=== PATIENT | male | born 1985 | race Caucasian/White ===

== ENCOUNTER 2019-01-09 19:45 | Emergency (ER) | payer OTHER, SELFPAY ==
[2019-01-09 19:47] VITALS: BP 153/88; PULSE 89; RESP 16; TEMP 36.8; O2SAT 100; BMI 27.3
[2019-01-09 19:51] VITALS: O2SAT 99
--- NOTE | 2019-01-09 20:06 | CT_ITS ---
STUDY: CT BRAIN WITHOUT CONTRAST REASON FOR EXAM: Male, 33 years old. Trauma RADIATION DOSAGE (If Supplied By Facility): CTDIvol = ( 44.99 ) mGy, DLP = ( 779.24 ) mGycm TECHNIQUE: Transaxial CT imaging of the brain was performed without administration of intravenous contrast material. Individualized dose optimization techniques were used for this CT. COMPARISON: None. FINDINGS: There is no acute bleed or infarct. There are normal white matter tracts. The ventricles are normal in configuration. There is no hydrocephalus. The mastoid air cells are well aerated. There is no skull fracture. CT/Brain/Head without Contrast IMPRESSION: No acute intracranial abnormality. Please see the facial CT which is dictated separately. Electronically Signed: Stiven Parkinson, at 20:58 EDT Tel , Service support ,
--- NOTE | 2019-01-09 20:06 | CT_ITS ---
STUDY: CT CERVICAL SPINE WITHOUT CONTRAST REASON FOR EXAM: Male, 33 years old. Trauma RADIATION DOSAGE (If Supplied By Facility): CTDIvol = ( 28.68 ) mGy, DLP = ( 751.30 ) mGycm TECHNIQUE: High resolution transaxial imaging was performed without contrast material. Sagittal and coronal images were reconstructed. Individualized dose optimization techniques were used for this CT. COMPARISON: None available. FINDINGS: There is no evidence of fracture or dislocation in the cervical spine. The dens is intact. Alignment is normal. The vertebral body heights and disc spaces are well-maintained. There are no significant degenerative changes. The visualized paraspinal soft tissues are within normal limits. CT/Spine Cervical without Contras IMPRESSION: No fracture or dislocation in the cervical spine. No significant degenerative changes. Electronically Signed: Stiven Parkinson, at 21:02 EDT Tel , Service support ,
--- NOTE | 2019-01-09 20:07 | CT_ITS ---
STUDY: CT CHEST WITH CONTRAST REASON FOR EXAM: Male, 33 years old. Trauma RADIATION DOSAGE (If Supplied By Facility): CTDIvol = ( 17.57 ) mGy, DLP = ( 1868.57 ) mGycm TECHNIQUE: Transaxial imaging was performed following intravenous administration of 100 ml of Isovue 300 contrast material. Coronal and sagittal reformatted images were created. Individualized dose optimization techniques were used for this CT. COMPARISON: None FINDINGS: There is a tiny (1-2%) right sided pneumothorax anteriorly. There is no left-sided effusion. There small patchy areas of groundglass opacity anteriorly in the right upper lobe which are consistent with small parenchymal contusions. The lungs are otherwise clear. There are no pleural effusions. There are fractures of the right right first, second, third, fourth and eighth ribs. The remainder of the visualized thoracic osseous structures are intact. CT/Chest WITH Contrast IMPRESSION: Fractures of the right first through fourth ribs and right eighth rib. Tiny right-sided pneumothorax anteriorly. Small patchy groundglass opacities anteriorly in the right upper lobe which are consistent with small parenchymal contusions. N.B. : The above information has been verbally conveyed by Stiven Parkinson to Darwin Toth MD, on 01/09/2019 21:25:28 (ET). Electronically Signed: Stiven Parkinson, at 21:14 EDT Tel , Service support ,
--- NOTE | 2019-01-09 20:07 | CT_ITS ---
STUDY: CT ABDOMEN AND PELVIS WITH CONTRAST REASON FOR EXAM: Male, 33 years old. Trauma RADIATION DOSAGE (If Supplied By Facility): CTDIvol = ( 17.57 ) mGy, DLP = ( 1868.57 ) mGycm TECHNIQUE: Transaxial images were obtained from the dome of the diaphragm to the symphysis pubis without oral contrast. 100 ml of Isovue 300 contrast was administered. Sagittal and coronal images were reconstructed. Individualized dose optimization techniques were used for this CT. COMPARISON: None. FINDINGS: The study is limited by streak artifact due to the patient's arms being at his sides. There are no calcified gallstones present. The liver is within normal limits. There are no suspicious hepatic lesions. The spleen is normal in size. The pancreas is within normal limits. The adrenal glands are within normal limits. There are no renal or ureteral stones. There is no hydronephrosis. There are no focal renal lesions. Normal visualized stomach. There is no bowel obstruction or inflammation. The appendix is visualized and appears normal. The aorta is normal in caliber. There is no abdominal or pelvic free air, free fluid, fluid collection or lymphadenopathy. The visualized abdominal and pelvic osseous structures are intact. CT/Abdomen/Pelvis W IV Cont ONLY IMPRESSION: Please see the chest CT report which is dictated separately. No acute traumatic findings in the abdomen or pelvis. Electronically Signed: Stiven Parkinson, at 20:55 EDT Tel , Service support ,
[2019-01-09] MEDS: Ondansetron 4 MG/2 ML Vial IV ×2 (20:13→22:16)
[2019-01-09] MEDS: Morphine 4 MG/ML Syringe IV (20:14)
[2019-01-09 20:24] LABS: Absolute Lymphocyte Count 3.48 X10^3/ul (0.83-4.51); Absolute Neutrophil Count 5.4 X10^3/uL (2.0-7.7); Basophil# 0.04 X10^3/uL; Basophil% 0.4 % (0-1); Eosinophil# 0.28 X10^3/uL; Eosinophils% 2.9 % (0-5); Hematocrit 39.2 % (40-54); Hemoglobin 13.2 g/dl (13.0-16.5); Lymphocyte # 3.48 X10^3/ul (4.0); Mean Corp Hgb Conc 33.7 g/gl (32-36); Mean Corpuscular Hgb 29.9 pg (27.0-32.0); Mean Corpuscular Volume 88.7 fL (80-94); Mean Platelet Vol. 10.2 fl (6.2-12.0); Monocyte# 0.49 X10^3/uL; Monocyte% 5.1 % (0-10); Neutrophil # 5.36 X10^3/uL (2.7-7.7); Neutrophil % 55.3 % (47-70); Platelet Count 299 K/mm3 (150-450); RBC Distribution Width CV 12.8 % (11.6-14.6); Red Blood Count 4.42 M/mm3 (4.6-6.2); White Blood Count 9.7 K/mm3 (4.4-11.0)
[2019-01-09 20:25] LABS: POSITIVE COUNT NO; POSITIVE DIFFERENTIAL NO; POSITIVE MORPHOLOGY NO
--- NOTE | 2019-01-09 20:32 | CT_ITS ---
STUDY: CT FACIAL BONES WITHOUT CONTRAST REASON FOR EXAM: Male, 33 years old. Trauma RADIATION DOSAGE (If Supplied By Facility): CTDIvol = ( 29.38 ) mGy, DLP = ( 606.22 ) mGycm TECHNIQUE: The patient was scanned in a multi detector CT scanner. Sagittal and coronal images were reconstructed. Individualized dose optimization techniques were used for this CT. COMPARISON: None. FINDINGS: There is a soft tissue laceration superior and lateral to the right eye. There is adjacent soft tissue swelling overlying the right cheek, eye and forehead. Normal orbital rea and orbital contents. Normal nasal bones and anterior nasal spine. Normal facial bones. There is no demonstrated fracture. There is also hypertrophy and opacification of the bilateral maxillary and ethmoid sinuses, left greater than right. CT/Sinus/Facial Bone IMPRESSION: Soft tissue laceration superior and lateral to the right orbit with adjacent soft tissue swelling overlying the right cheek, eye and forehead. No facial fracture. Bilateral maxillary and ethmoid sinusitis, left greater than right. Electronically Signed: Stiven Parkinson, at 21:06 EDT Tel , Service support ,
[2019-01-09 20:35] LABS: Anion Gap 6 (5-15); BUN 13 mg/dL (7-18); BUN/Creat Ratio 12.7 RATIO (10-20); Calcium,Total 8.9 mg/dL (8.5-10.1); Chloride 103 mmol/L (98-107); Creatinine, Serum 1.02 mg/dL (0.70-1.30); EST Glomerular Filtration Rate 88 mL/min (>60); Est Glom Filt Rate - Afr Amer 107 mL/min (>60); Estimated Creatinine Clearance 120.81 ml/min; Glucose 108 mg/dL (74-106); Potassium 3.1 mmol/L (3.5-5.1); Sodium Level 137 mmol/L (136-145)
--- NOTE | 2019-01-09 20:35 | RAD_ITS ---
STUDY: X-RAY - PELVIS AND RIGHT HIP REASON FOR EXAM: Male, 33 years old. Fall. Pain. TECHNIQUE: 3 views of the pelvis and right hip. COMPARISON: None. FINDINGS: There is a non-specific bowel gas pattern. Normal visualized soft tissue structures. Normal bilateral iliac wings, sacroiliac joints and visualized sacrum. Normal bilateral superior and inferior pubic rami. Normal pubic symphysis. Normal bilateral ischial tuberosities. Normal visualized femoral head. Normal acetabulum. Normal hip joint. RAD/HIP, UNI W/ Pelvis 2-3 Views IMPRESSION: Normal x-ray examination of the pelvis and right hip. Electronically Signed: Stiven Parkinson, at 20:57 EDT Tel , Service support ,
[2019-01-09 20:49] VITALS: BP 147/82; PULSE 94; RESP 16; O2SAT 100
[2019-01-09 21:00] VITALS: BP 132/81; PULSE 87; RESP 16; O2SAT 100
[2019-01-09 22:00] VITALS: BP 132/72; PULSE 92; RESP 18; O2SAT 98
--- NOTE | 2019-01-09 22:08 | ED.VIS.INJ ---
History of Present Illness Chief Complaint: Trauma Narrative: Patient presenting secondary to fall. Patient reports that he was painting his house and fell approximately 15 feet off of a ladder. He did strike his head lose consciousness. He is reporting a moderate to severe amount of pain in his right head, right shoulder, right chest, and right hip. He denies any numbness or weakness. He is not on any sort of anticoagulants. His tetanus status is not currently up-to-date. Past Medical History - Allergies and Home Meds Allergies/Adverse Reactions: Allergies Penicillins [PCN] Allergy (Verified 01/09/19 22:14) Unknown Primary Care Physician: Care Physician,No Primary [Primary Care Provider] - Smoking Status: Never smoker Review of Systems All systems negative except as indicated Eyes: Denies: Visual changes - bilaterally Cardiovascular: Reports: Chest pain Respiratory: Denies: Dyspnea Musculoskeletal: Reports: Arthralgias Neurological: Reports: Headache. Denies: Weakness, Parasthesia, Numbness Physical Exam Vital Signs/Narrative: Vital Signs Temp Pulse Resp BP Pulse Ox 01/09/19 20:49 94 16 147/82 H 100 01/09/19 19:51 99 01/09/19 19:47 98.2 F 89 16 153/88 H 100 General: - - Airway patent, breath sounds equal bilateral, central peripheral pulses 2+ and symmetric. GCS 15 out of 15. Well-nourished well-developed male no acute distress laying in the bed Head: Normocephalic, - - Swelling noted around the patient's right eye with laceration over the right temporal region measuring approximately 4 cm Eyes: Perrl, EOMI, - - No hyphema ENT: TM's clear, No hemotympanum or drainage, No trauma, - - No malocclusion Neck: Nontender. Negative for: Spinal Tenderness, Paraspinal Tenderness Cardiovascular: Regular rate, Regular rhythm, No murmurs Respiratory: No distress, CTA bilaterally, - - Right sided chest tenderness without any evidence of crepitus step-off deformity or abnormal chest excursion Abdomen: Soft, Nontender, Nondistended, Normal bowel sounds Extremeties: Upper and lower extremities are grossly atraumatic to examination. Patient has pain with range of motion of the right hip, no pain with range of motion of the right knee or ankle or foot. Skin: Normal color, No rash Neurological: Alert, Oriented x3, Cranial nerves II-XII grossly intact, Normal Strength, Normal Sensation Psychological: Normal affect Diagnostic/Tx/Re-eval - Medical Decision Making Patient presented secondary to a fall from a tree. Primary survey required no intervention. Secondary survey showed laceration as well as pain to the patient's chest and hip. CT of the brain and cervical spine were negative. Patient's cervical collar was cleared. CT of the chest abdomen and pelvis showed evidence of rib fractures of the first through fourth ribs and the eighth rib with small pulmonary contusions and a 1% pneumothorax. Hip x-ray was obtained which was found to be negative. Patient's laceration was addressed as noted in the procedure note. Given the patient's multiple rib fractures pulmonary contusions as well as small pneumothorax and believe he requires observation in a trauma center. His tetanus status was updated, [facility] instances Length: 6 ft Depth: Skin Shape: Stellate Prep: Sterile Conditions, Dave Laceration Repair: Lidocaine with epi Irrigated (ml): 500 Number of Sutures/Reyna: 6 - 6-0 nylon Stitch Description: Simple, 6-0 Critical care time (excluding procedures): 30-74 minutes - Critical care time was spent at bedside care, interpreting tests, coordinating with outside hospitals ED Disposition - Plan for ED Patient: Disposition: [facility] Diagnosis: Fall from height of greater than 3 feet, Ribs, multiple fractures, Pneumothorax, Pulmonary contusion, Facial laceration Referrals: Care Physician,No Primary [Primary Care Provider] -
[2019-01-09] MEDS: morphine 8 MG/ML Syringe 6 MG IV (22:16)
[2019-01-09 22:53] VITALS: RESP 16; O2SAT 98
== END 2019-01-09 22:54 | disposition short-term general hospital (02) ==
PROVIDERS: Emergency Provider Emergency Medicine
DX: S27.0XXA Traumatic pneumothorax, initial encounter (principal); S22.41XA Multiple fractures of ribs, right side, initial encounter for closed fracture; S27.329A Contusion of lung, unspecified, initial encounter; S01.81XA Laceration without foreign body of other part of head, initial encounter; Z23 Encounter for immunization; W11.XXXA Fall on and from ladder, initial encounter; Y93.H9 Activity, other involving exterior property and land maintenance, building and construction; Y92.008 Other place in unspecified non-institutional (private) residence as the place of occurrence of the external cause; Y99.8 Other external cause status
CPT/HCPCS: 12002; 36415; 70450; 70486; 71260; 72125; 73502; 74177; 80048; 85025; 96374; 96375; 96376; 99285; J7030; Q9967; A4216; J2405